=== PATIENT | female | born 1945 | race Caucasian/White ===

== ENCOUNTER 2017-05-10 16:18 | Emergency (ER) | payer BC, MEDICARE, MEDICAID ==
[2017-05-10 16:53] VITALS: BP 117/56
--- NOTE | 2017-05-10 17:36 | UC ---
Miracle Brenner Emily, scribed for Diana Araujo MD on 05/10/17 at 1711 . Abdominal Pain Female HPI - HPI Summary HPI Summary: This patient is a 71 year old F presenting to urgent care accompanied by her daughter with a chief complaint of RLQ and LLQ abd pain radiating upwards that began last night. The pain started while patient was sleeping. The CC is described as a constant pressure with shooting pain. 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 Pt with temp 100 prior to APAP Symptoms alleviated by acetaminophen. Patient reports flatus and black stool (pt attributes this to her iron. Pt did have 3- 4 BM today - the last was "loose" but not pranay diarrhea. Pt reports decreased appetite with little interest in po today. no fevers, chills. + fatigue. Patient denies vomiting, diarrhea, dysuria, polyuria, and vaginal discharge/ itching/odor. Pt denies recent trauma. Pt does have fibroids on her uterus and diverticulosis. No h/o abd surgery or diverticulitis. Patients medications reviewed this visit. - History of Current Complaint Chief Complaint: UCAbdominalPain Stated Complaint: ABDOMINAL PAIN Time Seen by Provider: 05/10/17 16:59 Hx Obtained From: Patient, Family/Registered Pharmacist Onset/Duration: Sudden Onset, Lasting Hours, Still Present Timing: Constant Severity Initially: Severe Severity Currently: Severe Pain Intensity: 1 - 8 at worst Pain Scale Used: 0-10 Numeric Location: Other - LLQ and RLQ Radiates to: Other - epigastric Character: Other - Shooting Alleviating Factor(s): Other: - Acetaminophen Associated Signs and Symptoms: Negative: Fever, Cough, Chest Pain, Back Pain, Blood in Stool, Urinary Symptoms Allergies/Adverse Reactions: Allergies Allergy/AdvReac Type Severity Reaction Status Date / Time Iodine Allergy Intermediate Hives Verified 02/07/15 07:26 Penicillin V AdvReac Intermediate Dizziness Verified 02/07/15 07:26 Home Medications: Home Medications Hydrocortisone SUPP* [Anusol HC Supp*] 25 mg NC 05/10/17 [History] PMH/Surg Hx/FS Hx/Imm Hx Previously Healthy: No Psychological History: Other Other Psychological History: Positive sleep apnea and allergies - Surgical History Surgical History: Yes Surgery Procedure, Year, and Place: D&CLeft Breast Biopsy - Family History Known Family History: Positive: Diabetes - Social History Occupation: Retired Lives: With Family Alcohol Use: None Substance Use Type: None Smoking Status (MU): Never Smoked Tobacco - Immunization History Most Recent Tetanus Shot: ? 2003 Review of Systems Constitutional: Fatigue, Other - decread appetite Gastrointestinal: Abdominal Pain, Other - Positive flatus and black stool. Negative vomiting, diarrhea Genitourinary: Other - Negative dysuria, polyuria, and vaginal discharge/itching /odor All Other Systems Reviewed And Are Negative: Yes Physical Exam Triage Information Reviewed: Yes Appearance: Well-Appearing, No Pain Distress, Well-Nourished Vital Signs: Initial Vital Signs Temp 99.6 F 05/10/17 16:48 Pulse 85 05/10/17 16:48 Resp 18 05/10/17 16:48 BP 117/56 05/10/17 16:48 Pulse Ox 97 05/10/17 16:48 Vital Signs Reviewed: Yes Eyes: Negative: Discharge ENT Exam: Normal ENT: Positive: Hearing grossly normal Respiratory: Positive: Chest non-tender, Lungs clear, Normal breath sounds, No respiratory distress, No accessory muscle use Cardiovascular: Positive: RRR, No Murmur, Pulses Normal Abdominal Exam: Normal Abdomen Description: Positive: No Organomegaly, Soft, Other: - Pt with TTP b/l LQ R>L + suprapubic discomfort with palp soft + BS No distended, no guarding. Negative: CVA Tenderness (R), CVA Tenderness (L), Distended Musculoskeletal Exam: Normal Neurological Exam: Normal Neurological: Positive: Alert Psychological Exam: Normal Skin Exam: Normal Re-Evaluation - Re-Evaluation Second Eval Comment: pt's urine non diagnostic for UTI. pt with microscopic hematuria -pt has prevliously had. Pt will go to ED for additional evaluation Abd Pain Female Course/Dx - Course Course Of Treatment: Pt presents with lower ab pain since last evening. Pain in lower quadrants and improves with APAP. Pt with decreased appetite today. Pt with tenderness across lower abd on exam today. I had a long discussion with pt regarding differential including appendicitis, colitis, diverticulitis. given the location of pain. Will check urine. If neg, recommend pt to ED for further evaluation - Differential Dx/Diagnosis Provider Diagnoses: abdominal pain Discharge - Discharge Plan Condition: Stable Disposition: [facility]ANS [facility] Patient Education Materials: Acute Abdominal Pain (ED) Referrals: Claudia Scott MD [Primary Care Provider] - Additional Instructions: The doctor that evaluated you today thinks your abdominal pain needs further evaluation that can be conducted here. It is recommended you go directly to the emergency department. Your evaluation will likely include laboratory studies and radiology imaging. Please do not eat or drink anything before your evaluation at the emergency department. They are expecting you The documentation as recorded by the Miracle lam Emily accurately reflects the service I personally performed and the decisions made by me, Diana Araujo MD.
== END 2017-05-10 18:00 | disposition short-term general hospital (02) ==
LOC: UCEAST 16:18
DX: R10.9 Unspecified abdominal pain (principal); Z88.0 Allergy status to penicillin; G47.33 Obstructive sleep apnea (adult) (pediatric)
CPT/HCPCS: 81003; 99211; G0463

== ENCOUNTER 2017-05-10 18:22 | Emergency (ER) | payer BC, MEDICARE, MEDICAID ==
[2017-05-10] MEDS ORDERED: NS 0.9% 1000 ML* 1,000 ML IV ONE (18:51)
--- NOTE | 2017-05-10 19:23 | RAD ---
Indication: Abdominal pain. Single frontal view of the chest performed at 1905 hours was reviewed. Comparison is made with previous exam dated September 09, 2011. No mediastinal shift is noted. Heart is of normal size and configuration. Lung zaman appear clear. IMPRESSION: NO ACTIVE CARDIOPULMONARY DISEASE IS NOTED.
[2017-05-10 19:54] LABS: Hematocrit 42 % (35-47); Hemoglobin 14.2 g/dl (12.0-16.0); Mean Corpuscular HGB Conc 34 g/dl (31-36); Mean Corpuscular Hemoglobin 29 pg (27-31); Mean Corpuscular Volume 87 fL (80-97); Mean Platelet Volume 7 um3 (7.4-10.4); Red Blood Count 4.84 10^6/ul (4.0-5.4); Red Cell Distribution Width 13 % (10.5-15); White Blood Count 11.7 10^3/ul (3.5-10.8)
[2017-05-10 20:08] LABS: Albumin 4.1 g/dL (3.2-5.2); BUN/Creatinine Ratio 14.3 (8-20); Calcium 9.4 mg/dL (8.6-10.3); EGFR African American 106.4 (>60); EGFR Non-African American 82.7 (>60); Globulin 3.1 g/dL (2-4); Potassium 3.8 mmol/L (3.5-5.0); Total Bilirubin 0.7 mg/dL (0.2-1.0); Total Protein 7.2 g/dL (6.4-8.9)
[2017-05-10 20:18] LABS: Urine Bacteria 1+ (Absent); Urine Bilirubin Negative (Negative); Urine Glucose Negative (Negative); Urine Nitrite Negative (Negative)
--- NOTE | 2017-05-10 21:49 | RAD ---
Indication: Pelvic pain, abdominal pain. CT of the abdomen and pelvis was performed after oral contrast administration. No IV contrast was given. Coronal and sagittal reconstructed images were obtained. Lung bases demonstrate no pleural fluid, nodules or masses. Heart is of normal size without evidence of pericardial effusion. Liver is normal in size. No focal lesions or intrahepatic ductal dilatation is noted. The common duct is not dilated. The gallbladder demonstrates no calcified gallstones, pericholecystic fluid or wall thickening. The spleen is normal in size. Pancreas demonstrates no mass or pancreatic ductal dilatation. No adrenal masses are noted. The kidneys demonstrate no hydronephrosis although fullness of the renal collecting systems noted bilaterally. Atherosclerotic aorta is noted. No dilated loops of bowel are noted. No retroperitoneal adenopathy is noted. Inferior vena cava is grossly unremarkable. There is contrast in the right colon. Appendix is visualized and is normal. There is wall thickening of the sigmoid colon with infiltration of fat consistent with diverticulitis. No evidence of peridiverticular abscess is noted. The uterus demonstrates myomatous changes with calcification and multiple soft tissue lobulations. No adnexal masses are noted. The urinary bladder is unremarkable. No hernias are noted. IMPRESSION: Findings consistent with diverticulitis. No evidence of peridiverticular abscess is noted. Myomatous changes of the uterus is noted.
[2017-05-10] MEDS ORDERED: Levofloxacin 750 MG IVPREMIX(* 750 MG/150 ML BAG IVPB ONE (22:35)
[2017-05-10] MEDS ORDERED: metroNIDAZOLE IV 500 MG/100ML* 500 MG/100 ML BAG IVPB ONE (22:36)
--- NOTE | 2017-05-10 23:50 | ED ---
David Brenner Angela, scribed for Jas Siddiqui on 05/10/17 at 1903 . Abdominal Pain/Female - HPI Summary HPI Summary: This patient is a 71 year old F presenting from [facility] to [facility] accompanied by female with a chief complaint of constant RLQ abd pain since last night at approximately 1900. The pain radiated to the upper abdomen. The patient rates the sharp pain 8/10 in severity. Symptoms aggravated by palpitation. 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 Patient reports nausea and decreased appetite. Patient denies vomiting, and fever. She denies PSHx. She take ASA daily. - History of Current Complaint Chief Complaint: EDAbdPain Stated Complaint: POSS APPENDICITIS/SENT FROM CC Time Seen by Provider: 05/10/17 18:37 Hx Obtained From: Patient Onset/Duration: Lasting Days - 1 Timing: Days - 1 Pain Intensity: 8 Pain Scale Used: 0-10 Numeric Location: Discrete At: RLQ Allergies/Adverse Reactions: Allergies Allergy/AdvReac Type Severity Reaction Status Date / Time Iodine Allergy Intermediate Hives Verified 05/10/17 18:35 Penicillin V AdvReac Intermediate Dizziness Verified 05/10/17 18:35 PMH/Surg Hx/FS Hx/Imm Hx Endocrine/Hematology History: Reports: Hx Thyroid Disease Denies: Hx Anticoagulant Therapy, Hx Diabetes Cardiovascular History: Reports: Hx Hypercholesterolemia Denies: Hx Hypertension, Hx Pacemaker/ICD Respiratory History: Reports: Hx Asthma, Hx Sleep Apnea Denies: Hx Chronic Obstructive Pulmonary Disease (COPD) GI History: Reports: Hx Gastroesophageal Reflux Disease History: Denies: Hx Renal Disease Sensory History: Denies: Hx Hearing Aid Neurological History: Reports: Hx Migraine Denies: Hx Dementia, Hx Seizures Psychiatric History: Denies: Hx Panic Disorder, Hx Substance Abuse - Surgical History Surgery Procedure, Year, and Place: D&CLeft Breast Biopsy - Immunization History Date of Tetanus Vaccine: ukn Infectious Disease History: No Infectious Disease History: Reports: Hx Shingles Denies: Hx Clostridium Difficile, Hx Hepatitis, Hx Human Immunodeficiency Virus (HIV), Hx of Known/Suspected MRSA, Hx Tuberculosis, Hx Known/Suspected VRSA, History Other Infectious Disease, Traveled Outside the [place] in Last 30 Days - Family History Known Family History: Positive: Diabetes - Social History Alcohol Use: None Substance Use Type: Reports: None Smoking Status (MU): Never Smoked Tobacco Review of Systems Positive: Other - decreased appetite. Negative: Fever, Chills Eyes: Negative Positive: Abdominal Pain, Nausea. Negative: Vomiting, Diarrhea Genitourinary: Negative Neurological: Negative All Other Systems Reviewed And Are Negative: Yes Physical Exam Triage Information Reviewed: Yes Vital Signs On Initial Exam: Initial Vitals Temp Pulse Resp BP Pulse Ox 98.2 F 79 16 149/96 98 05/10/17 18:31 05/10/17 18:31 05/10/17 18:31 05/10/17 18:31 05/10/17 18:31 Vital Signs Reviewed: Yes Appearance: Positive: Well-Appearing Skin: Positive: Warm, Skin Color Reflects Adequate Perfusion, Dry Head/Face: Positive: Normal Head/Face Inspection Eyes: Positive: EOMI, KEERTHI ENT: Positive: Normal ENT inspection Neck: Positive: Supple, Nontender Respiratory/Lung Sounds: Positive: Clear to Auscultation, Breath Sounds Present Cardiovascular: Positive: RRR, Pulses are Symmetrical in both Upper and Lower Extremities Abdomen Description: Positive: Soft, Other: - diffuse abd tenderness Bowel Sounds: Positive: Present Musculoskeletal: Positive: Normal, Strength/ROM Intact Neurological: Positive: Normal, Sensory/Motor Intact, Alert, Oriented to Person Place, Time Diagnostics - Vital Signs Vital Signs Temp Pulse Resp BP Pulse Ox 05/10/17 18:31 98.2 F 79 16 149/96 98 - Laboratory Result Diagrams: 05/10/17 19:43 05/10/17 19:43 Lab Statement: Any lab studies that have been ordered have been reviewed, and results considered in the medical decision making process. - Radiology Chest XR Xray Interpretation: No Acute Changes - IMPRESSION: No active cardiopulmonary disease is noted. ED physician has reviewed this radiology report and agrees. Radiology Interpretation Completed By: Radiologist - CT Abdomen/pelvis CT CT Interpretation: Positive (See Comments) - IMPRESSION: Findings consistent with diverticulitis. No evidence of peridiverticular abscess is noted. Myomatous changes of the uterus is noted. ED physician has reviewed this radiology report and agrees. CT Interpretation Completed By: Radiologist - EKG 1854 Cardiac Rate: NL - 68 bpm EKG Rhythm: Sinus Rhythm EKG Interpretation: No ST changes Abdominal Pain Fem Course/Dx - Course Course Of Treatment: Pt is a 71 year old F presenting from [facility] to [facility] with a chief complaint of constant RLQ abd pain since last night at approximately 1900. Bloodwork, EKG, chest XR, abdomen/pelvis CT. CT is consistent with diverticulitis. Pt will be discharged and will follow up with PCP in 3 days. - Diagnoses Provider Diagnoses: Diverticulitis Discharge - Discharge Plan Condition: Stable Disposition: HOME Patient Education Materials: Diverticulitis (ED) Referrals: Claudia Scott MD [Primary Care Provider] - 3 Days The documentation as recorded by the David lam Angela accurately reflects the service I personally performed and the decisions made by Chen wong Emmanuel.
[2017-05-11] MEDS ORDERED: Acetaminophen TAB* 325 MG PO ONE (01:21)
[2017-05-11 02:55] VITALS: BP 141/84
== END 2017-05-11 02:55 | disposition home or self-care (01) ==
LOC: ED 18:22
DX: K57.92 Diverticulitis of intestine, part unspecified, without perforation or abscess without bleeding (principal); R10.9 Unspecified abdominal pain; R11.0 Nausea
CPT/HCPCS: 36415; 71010; 74176; 80053; 81003; 81015; 83605; 83690; 84484; 85025; 85610; 85730; 87086; 93005; 96365; 99282; A9270-GY

== ENCOUNTER 2017-09-30 05:25 | Inpatient (IN) | payer BC, MEDICARE, MEDICAID ==
[2017-09-30] MEDS ORDERED: Pantoprazole IV* 40 MG IV ONE (05:59)
[2017-09-30] MEDS ORDERED: Ondansetron INJ* 2 MG/ML VIAL IV ONE (05:59)
[2017-09-30] MEDS ORDERED: Promethazine INJ(RESTRICTED)* 25 MG/ML 1 ML VIAL IM ONE (06:01)
[2017-09-30] MEDS: NS 0.9% 1000 ML* 2,000 ML IV ONE ×2 (06:07→07:56)
[2017-09-30] MEDS ORDERED: Meclizine TAB* 12.5 MG PO ONE (06:15)
[2017-09-30 06:20] LABS: ABS Basophils 0 10^3/ul (0-0.2); ABS Eosinophils 0 10^3/ul (0-0.6); ABS Lymphocytes 2.6 10^3/ul (1.0-4.8); ABS Monocytes 0.9 10^3/ul (0-0.8); ABS Nucleated RBC 0 10^3/ul; Eosinophil % 0.1 % (0-6); Hematocrit 41 % (35-47); Hemoglobin 13.7 g/dl (12.0-16.0); Lymphocyte % 24.9 % (25-47); Mean Corpuscular HGB Conc 34 g/dl (31-36); Mean Corpuscular Hemoglobin 29 pg (27-31); Mean Corpuscular Volume 88 fL (80-97); Mean Platelet Volume 7 um3 (7.4-10.4); Nucleated Red Blood Cells % 0.1; Platelet Count 581 10^3/ul (150-450); Red Blood Count 4.65 10^6/ul (4.0-5.4); Red Cell Distribution Width 13 % (10.5-15); White Blood Count 10.6 10^3/ul (3.5-10.8)
[2017-09-30 06:27] LABS: INR 0.98 (0.77-1.02)
[2017-09-30 06:32] LABS: EGFR Non-African American 88.3 (>60)
--- NOTE | 2017-09-30 06:59 | ED ---
Jayne Brenner Thomas, scribed for Federico Lowery MD on 09/30/17 at 0614 . Complex/Multi-Sys Presentation - HPI Summary HPI Summary: The patient is a 72 year old female complaining of vomiting and inability to keep anything down for the last day. The patient had a hysterectomy due to fibroids on 08/30/17 and shortly after that surgery, she had a herniated bowel that required surgery. She denies pain in the ED. She has been passing gas. For the last two nights, the patient has been having dizziness when she stands up. The patient denies shortness of breath. She is on ASA 81. - History Of Current Complaint Chief Complaint: EDNauseaVomitDiarrh Time Seen by Provider: 09/30/17 05:38 Hx Obtained From: Patient Onset/Duration: Lasting Days - 1, Still Present Timing: Constant Severity Currently: Moderate Severity Initially: Moderate Location: Negative Alleviating Factor(s): None Associated Signs And Symptoms: Positive: Other - Vomiting, dizziness; NEGATIVE: abd pain, SOB Related History: Recent Hospitalization, Other - Recent surgery - Allergies/Home Medications Allergies/Adverse Reactions: Allergies Allergy/AdvReac Type Severity Reaction Status Date / Time iodine Allergy Hives Verified 09/30/17 05:31 Penicillins Allergy Dizziness Verified 09/30/17 05:31 PMH/Surg Hx/FS Hx/Imm Hx Endocrine/Hematology History: Reports: Hx Thyroid Disease Denies: Hx Anticoagulant Therapy, Hx Diabetes Cardiovascular History: Reports: Hx Hypercholesterolemia Denies: Hx Hypertension, Hx Pacemaker/ICD Respiratory History: Reports: Hx Asthma, Hx Sleep Apnea Denies: Hx Chronic Obstructive Pulmonary Disease (COPD) GI History: Reports: Hx Gastroesophageal Reflux Disease History: Denies: Hx Renal Disease Sensory History: Denies: Hx Hearing Aid Neurological History: Reports: Hx Migraine Denies: Hx Dementia, Hx Seizures Psychiatric History: Denies: Hx Panic Disorder, Hx Substance Abuse - Surgical History Surgery Procedure, Year, and Place: D&CLeft Breast Biopsy - Immunization History Date of Tetanus Vaccine: ukn Infectious Disease History: No Infectious Disease History: Reports: Hx Shingles Denies: Hx Clostridium Difficile, Hx Hepatitis, Hx Human Immunodeficiency Virus (HIV), Hx of Known/Suspected MRSA, Hx Tuberculosis, Hx Known/Suspected VRSA, History Other Infectious Disease, Traveled Outside the [place] in Last 30 Days - Family History Known Family History: Positive: Diabetes - Social History Alcohol Use: None Substance Use Type: Reports: None Smoking Status (MU): Never Smoked Tobacco Review of Systems Negative: Shortness Of Breath Positive: Vomiting. Negative: Abdominal Pain Neurological: Other - Dizziness All Other Systems Reviewed And Are Negative: Yes Physical Exam - Summary Physical Exam Summary: VITAL SIGNS: Reviewed. GENERAL: Patient is a well-developed and nourished MALE who is lying comfortable in the stretcher. Patient is not in any acute respiratory distress. HEAD AND FACE: No signs of trauma. No ecchymosis, hematomas or skull depressions. No sinus tenderness. EYES: PERRLA, EOMI x 2, No injected conjunctiva, no nystagmus. No dysmetria. EARS: Hearing grossly intact. Ear canals and tympanic membranes are within normal limits. MOUTH: Oropharynx within normal limits. NECK: Supple, trachea is midline, no adenopathy, no JVD, no carotid bruit, no c- spine tenderness, neck with full ROM. CHEST: Symmetric, no tenderness at palpation LUNGS: Clear to auscultation bilaterally. No wheezing or crackles. CVS: Regular rate and rhythm, S1 and S2 present, no murmurs or gallops appreciated. ABDOMEN: There is ecchymosis over the anterior abdominal wall. Soft, non- tender. No signs of distention. No rebound no guarding, and no masses palpated. Bowel sounds are hypoactive. EXTREMITIES: FROM in all major joints, no edema, no cyanosis or clubbing. NEURO: Alert and oriented x 3. No acute neurological deficits. Speech is normal and follows commands. No dysmetria. SKIN: Dry and warm Triage Information Reviewed: Yes Vital Signs On Initial Exam: Initial Vitals Temp Pulse Resp BP Pulse Ox 98.2 F 82 16 163/62 98 09/30/17 05:27 09/30/17 05:27 09/30/17 05:27 09/30/17 05:27 09/30/17 05:27 Vital Signs Reviewed: Yes Diagnostics - Vital Signs Vital Signs Temp Pulse Resp BP Pulse Ox 09/30/17 05:27 98.2 F 82 16 163/62 98 - Laboratory Result Diagrams: 09/30/17 05:42 09/30/17 05:42 Lab Statement: Any lab studies that have been ordered have been reviewed, and results considered in the medical decision making process. Complex Multi-Symp Course/Dx Assessment/Plan: The patient is a 72 year old female complaining of vomiting and inability to keep anything down for the last day. The patient had a hysterectomy due to fibroids on 08/30/17 and shortly after that surgery, she had a herniated bowel that required surgery. She denies pain in the ED. She has been passing gas. For the last two nights, the patient has been having dizziness when she stands up. In the ED course the patient was given IV fluids, Zofran, Protonix, and Promethazine. Bloodwork and urinalysis were obtained. At this time, CT Abd/Pel and CT Merlin are ordered but not yet taken. The patient will be signed out to Dr. Dean, pending imaging and awaiting disposition. - Diagnoses Provider Diagnoses: Dizziness, Vomiting Discharge - Discharge Plan Condition: Fair Disposition: OTHER Discharge Disposition Comment: Signed out to Dr. Dean, pending imaging and awaiting disposition. Referrals: Claudia Scott MD [Primary Care Provider] - The documentation as recorded by the Jayne lam Thomas accurately reflects the service I personally performed and the decisions made by , Federico Lowery MD.
[2017-09-30 08:02] LABS: Urine Appearance Clear; Urine Blood 1+ (Negative); Urine Color Yellow; Urine Ketones Trace (Negative); Urine Protein Negative (Negative); Urine Specific Gravity 1.012 (1.010-1.030); Urine Urobilinogen Negative (Negative)
--- NOTE | 2017-09-30 08:05 | RAD ---
HISTORY: Vertigo COMPARISONS: Head CT dated August 31, 2011, MRI dated November 06, 2014 TECHNIQUE: Multiple contiguous axial CT scans were obtained of the head without intravenous contrast. FINDINGS: HEMORRHAGE/INFARCT: There is no hemorrhage or acute infarct. MASSES/SHIFT: There is no mass or shift. EXTRA-AXIAL SPACES: There are no extra-axial fluid collections. SULCI AND VENTRICLES: The sulci and ventricles are normal in size and position for the patient's stated age. CEREBRUM: There are no focal parenchymal abnormalities. BRAINSTEM: There are no focal parenchymal abnormalities. CEREBELLUM: There are no focal parenchymal abnormalities. VESSELS: The vessels are grossly normal. PARANASAL SINUSES: The paranasal sinuses are clear. ORBITS: The orbits are unremarkable. BONES AND SOFT TISSUE: No bone or soft tissue abnormalities are noted. OTHER: None IMPRESSION: NO ACUTE INTRACRANIAL PATHOLOGY.
--- NOTE | 2017-09-30 08:11 | RAD ---
CLINICAL HISTORY: Vomiting COMPARISON: May 10, 2017 TECHNIQUE: Multiple contiguous axial CT scans were obtained of the abdomen and pelvis, without intravenous contrast enhancement. Coronal and sagittal multiplanar reformations are submitted for review. Oral contrast was not administered. FINDINGS: The study is limited by the lack of intravenous contrast. This limits evaluation of the solid organs and vasculature. LUNG BASES: The lung bases are clear. LIVER: The liver is normal in shape, size, contour, and attenuation. BILE DUCTS: There is no intrahepatic or extrahepatic biliary dilatation. GALLBLADDER: The gallbladder is normal, without pericholecystic inflammatory change. PANCREAS: The pancreas is normal, without mass or ductal dilatation. SPLEEN: Normal in size and appearance. UPPER GI TRACT: Evaluation of the gastrointestinal tract is limited by incomplete gastric distention. There is a small sliding hiatal hernia. SMALL BOWEL AND MESENTERY: There is distention without dilatation of loops of small bowel within the midabdomen, without clear transition point COLON: There are multiple diverticula of the sigmoid colon. There is no pericolonic inflammatory change. There is a tubular, vermiform, hollow viscus that is blind ending, and originates from the cecum, consistent with a normal appendix. There is no periappendiceal inflammatory change. This is best seen on axial images 57 through 65 ADRENALS: Normal bilaterally. KIDNEYS: The kidneys are normal in shape, size, contour, and axis. There is no hydronephrosis or nephrolithiasis. BLADDER: The bladder is collapsed and is not well evaluated. PELVIC ORGANS: The pelvic organs are not visualized. There is a small amount of free fluid within the pelvis. AORTA: There is calcific atherosclerotic disease of the abdominal aorta and its branches, without aneurysmal dilatation IVC: Unremarkable LYMPH NODES: There is no lymphadenopathy by size criteria. ABDOMINAL WALL: There is no evidence for abdominal wall hernia. There is post surgical change to the anterior abdominal wall. BONES AND SOFT TISSUES: Degenerative changes are noted of the spine. OTHER: None IMPRESSION: 1. THERE IS DISTENTION WITHOUT DILATATION OF SMALL BOWEL LOOPS IN THE UPPER ABDOMEN WITHOUT TRANSITION POINT. THIS IS NONSPECIFIC. THE DIFFERENTIAL INCLUDES ILEUS VERSUS EARLY OR PARTIAL OBSTRUCTION. RECOMMEND ATTENTION ON FOLLOW-UP IMAGING. 2. DIVERTICULOSIS. 3. ATHEROSCLEROSIS. 4. THERE IS A SMALL AMOUNT OF FREE FLUID WITHIN THE PELVIS.
[2017-09-30] MEDS ORDERED: Metoclopramide IV* 5 MG/ML 2 ML VIAL IV ONE (08:43)
[2017-09-30] MEDS ORDERED: LORazepam INJ* 2 MG/ML 1 ML VIAL IV PUSH ONE (08:43)
[2017-09-30] MEDS ORDERED: Albuterol HFA INHALER* 8 gm MDI INH PRN (10:35)
[2017-09-30] MEDS: NS 0.9% 1000 ML* 1,000 ML IV SCH (12:16)
[2017-09-30] MEDS: Ketorolac INJ* 30 MG/ML 1 ML VIAL IV PUSH PRN ×2 (12:16→19:39)
[2017-09-30] MEDS: Ondansetron INJ* 2 MG/ML VIAL IV PRN ×2 (12:16→19:40)
[2017-09-30] MEDS: Heparin VIAL(*) 5000 UNITS/ML VIAL (FIVE THOUSAND) SUBCUT SCH ×2 (14:05→21:44)
[2017-09-30] MEDS: Atorvastatin* 20 MG TAB PO SCH (16:16)
[2017-09-30] MEDS: Montelukast Sodium TAB* 10 MG PO SCH (16:16)
[2017-09-30] MEDS: Aspirin EC Low Dose* 81 MG TAB.EC PO SCH (16:16)
--- NOTE | 2017-09-30 18:20 | PN ---
Progress Note - Progress Note Date of Service: 09/30/17 Note: Brief Surgery Note (full consult dictated) S: hx reviewed; admitted w/ vomiting and vertigo; denies sig abd pain; has been moving bowels and passing flatus O: Vital Signs - 8 hr 09/30/17 09/30/17 09/30/17 11:00 11:15 11:16 Temperature 98.8 F Pulse Rate 78 Respiratory Rate Blood Pressure 149/61 (mmHg) O2 Sat by Pulse 96 Oximetry 09/30/17 09/30/17 09/30/17 12:00 12:14 12:32 Temperature 98.2 F 98.8 F Pulse Rate 85 Respiratory 16 16 Rate Blood Pressure 157/61 (mmHg) O2 Sat by Pulse 97 Oximetry 09/30/17 15:12 Temperature 98.4 F Pulse Rate 73 Respiratory 20 Rate Blood Pressure 135/55 (mmHg) O2 Sat by Pulse 95 Oximetry Gen: WN, WD, in NAD HEENT: mm dry Heart: reg Lungs: clear Abd: healing laparoscopic incision sites (multiple); couple of areas of resolving ecchymosis; +BS (normoactive); soft; nontender to palp; no masses. Extr: no edema Labs: Laboratory Tests 09/30/17 09/30/17 09/30/17 05:42 05:42 05:42 WBC 10.6 Hgb 13.7 Neut % (Auto) 66.3 Potassium 3.1 L Lactic Acid 2.1 H* ALT 58 H Alkaline Phosphatase 105 H C-Reactive Protein 10.56 H Amylase [address]: (noncontrast) (reviewed personally w/ Dr. Quezada) COMPARISON: May 10, 2017 TECHNIQUE: Multiple contiguous axial CT scans were obtained of the abdomen and pelvis, without intravenous contrast enhancement. Coronal and sagittal multiplanar reformations are submitted for review. Oral contrast was not administered. FINDINGS: The study is limited by the lack of intravenous contrast. This limits evaluation of the solid organs and vasculature. LUNG BASES: The lung bases are clear. LIVER: The liver is normal in shape, size, contour, and attenuation. BILE DUCTS: There is no intrahepatic or extrahepatic biliary dilatation. GALLBLADDER: The gallbladder is normal, without pericholecystic inflammatory change. PANCREAS: The pancreas is normal, without mass or ductal dilatation. SPLEEN: Normal in size and appearance. UPPER GI TRACT: Evaluation of the gastrointestinal tract is limited by incomplete gastric distention. There is a small sliding hiatal hernia. SMALL BOWEL AND MESENTERY: There is distention without dilatation of loops of small bowel within the midabdomen, without clear transition point COLON: There are multiple diverticula of the sigmoid colon. There is no pericolonic inflammatory change. There is a tubular, vermiform, hollow viscus that is blind ending, and originates from the cecum, consistent with a normal appendix. There is no periappendiceal inflammatory change. This is best seen on axial images 57 through 65 ADRENALS: Normal bilaterally. KIDNEYS: The kidneys are normal in shape, size, contour, and axis. There is no hydronephrosis or nephrolithiasis. BLADDER: The bladder is collapsed and is not well evaluated. PELVIC ORGANS: The pelvic organs are not visualized. There is a small amount of free fluid within the pelvis. AORTA: There is calcific atherosclerotic disease of the abdominal aorta and its branches, without aneurysmal dilatation IVC: Unremarkable LYMPH NODES: There is no lymphadenopathy by size criteria. ABDOMINAL WALL: There is no evidence for abdominal wall hernia. There is post surgical change to the anterior abdominal wall. BONES AND SOFT TISSUES: Degenerative changes are noted of the spine. OTHER: None IMPRESSION: 1. THERE IS DISTENTION WITHOUT DILATATION OF SMALL BOWEL LOOPS IN THE UPPER ABDOMEN WITHOUT TRANSITION POINT. THIS IS NONSPECIFIC. THE DIFFERENTIAL INCLUDES ILEUS VERSUS EARLY OR PARTIAL OBSTRUCTION. RECOMMEND ATTENTION ON FOLLOW-UP IMAGING. 2. DIVERTICULOSIS. 3. ATHEROSCLEROSIS. 4. THERE IS A SMALL AMOUNT OF FREE FLUID WITHIN THE PELVIS. A: vomiting and vertigo, now ~ 2 wks s/p lap robotic vag hysterectomy and 11 days s/p repair umbilical and lap port site hernias w/ mesh. There do not appear to be any active surgical issues, but P: we will follow while in-house; I will d/w Dr. Quezada, surgical attending. Will also order K repletion.
--- NOTE | 2017-09-30 18:36 | ED ---
David Brenner Angela, scribed for Dion Dean MD on 09/30/17 at 0716 . Progress - Progress Note Progress Note: This pt was signed out by Dr. Lowery, pending disposition, awaiting CT Brain and CT abdomen/pelvis. CT Brain, as read by radiologist: IMPRESSION: No acute intracranial pathology. Dr. Dean has reviewed this radiology report. CT Abdomen/Pelvis, as read by radiologist: IMPRESSION: 1. There is distension without dilatation of small bowel loops in the upper abdomen without transition point. This is nonspecific. The differential includes ileus versus early or partial obstruction. Recommend attention on follow-up imaging. 2. Diverticulosis. 3. Atherosclerosis. 4. There is a small amount of free fluid within the pelvis. Dr. Dean has reviewed this radiology report. This pt was signed out to me by Dr. Lowery to follow up on the CT of abdomen/ pelvis and brain CT. Brain CT: No acute intracranial pathology. Abdomen/Pelvis CT: 1. There is distension without dilatation of small bowel loops in the upper abdomen without transition point. This is nonspecific. The differential includes ileus versus early or partial obstruction. Recommend attention on follow-up imaging. 2. Diverticulosis. 3. Atherosclerosis. 4. There is a small amount of free fluid within the pelvis. Pt seems to have a partial small bowel obstruction. I discussed the pt's case with Dr. Rodriguez, hospitalist, who has agreed to admit the pt. Pt will be admitted to [facility], in stable condition, with a diagnosis of partial small bowel obstruction. Condition: Stable Disposition: Admit to [facility] Course/Dx - Diagnoses Provider Diagnoses: Small bowel obstruction - Provider Notifications Discussed Care Of Patient With: Clayton Rodriguez Time Discussed With Above Provider: 08:50 Instructed by Provider To: Other - I discussed pt care with Dr. Rodriguez, hospitalist, who agreed to accept the pt. The documentation as recorded by the David lam Angela accurately reflects the service I personally performed and the decisions made by me, Dion Dena MD.
--- NOTE | 2017-09-30 19:33 | HP ---
ADMISSION HISTORY AND PHYSICAL: DATE OF ADMISSION: 09/30/17 PRIMARY CARE PROVIDER: Dr. Scott. HEALTHCARE PROXY: Her daughter. CODE STATUS: Full. SOURCE OF INFORMATION: History was obtained from interview with the patient and her daughter. RELIABILITY: Good. CHIEF COMPLAINT: Nausea and vomiting. HISTORY OF PRESENT ILLNESS: This 72-year-old female, recent laparoscopic hysterectomy at [facility] on 09/16/17, performed secondary to emerging fibroids, had done well; however, status post surgery, was discharged, developed nausea, vomiting, was found to have umbilical herniation of bowel per patient, on 09/19/17, required repair with mesh. She was hospitalized at [facility] from the through the , treated with NG tube, after repair discharged and had been doing well since the ; however, 2 days prior to presentation, ate Turkmen food with her daughter and they both had felt nauseous overnight which developed into vomiting yesterday for the patient, but did not for the patient's daughter. The vomiting increased, became bilious for which the patient presented to the emergency room. She has had no abdominal pain. Her last bowel movement was yesterday with diarrhea and then became more solid. She noted decreased quantity of flatus. Her last emesis was in the emergency room this morning. No longer feels nauseous at this point. She does note 1 episode of sudden onset vertigo which has since resolved. When seen by this author, she is no longer nauseous, has no abdominal pain, but does note headache. PAST MEDICAL HISTORY: Includes: 1. Hypothyroidism. 2. Allergies. 3. Sleep apnea for which she uses CPAP. 4. Migraines. 5. Left breast biopsy. 6. Laparoscopic hysterectomy at [facility] at 09/16/17. ALLERGIES: To PENICILLIN and IODINE. FAMILY HISTORY: Parents lived to old age. No known medical illnesses. SOCIAL HISTORY: No tobacco, alcohol or illicits. REVIEW OF SYSTEMS: As per HPI, otherwise all other systems negative. PHYSICAL EXAMINATION GENERAL: Younger than stated age, interactive, pleasant, in no apparent distress. VITAL SIGNS: Vitals in the emergency room 142/65, heart rate 85, respiratory rate 16, 97% on room air, T-max 98.2. HEENT: Oropharynx is clear. Moist mucous membranes. Sclerae are anicteric. LUNGS: Clear to auscultation. HEART: Has a regular rate and rhythm. ABDOMEN: Soft, has positive bowel sounds. Does have area of firmness around the umbilicus that is nontender. EXTREMITIES: Warm and well perfused without clubbing, cyanosis or edema. She has 2+ peripheral pulses. Less than 2 second cap refill. NEUROLOGIC: She is alert and oriented x3. Cranial nerves II through XII are intact. She has no apparent anxiety, agitation or depression. LABORATORY DATA/DIAGNOSTIC STUDIES: Labs in the emergency room; white blood cell count 10.6, hemoglobin 13.7, platelets 581,000. INR 0.98. Sodium 137, potassium 3.1, chloride 101, BUN 12, creatinine 0.66, ALT 58, alk phos 108. Data reviewed. CT abdomen and pelvis. Impression: There is distention without dilatation of small bowel loops in the upper abdomen without transition point. It is nonspecific. The differential includes ileus versus earlier partial small bowel obstruction. ASSESSMENT AND PLAN: This is a 72-year-old female, recent laparoscopic hysterectomy complicated by what seemingly sounds like abdominal hernia status post laparoscopic repair 09/19/17, now returning with nausea and vomiting that has since resolved with a CT evidence of potential early small bowel obstruction. Nausea and vomiting, concern for early small bowel obstruction versus ileus, especially in the setting of recent nausea in her daughter. This may be a gastroenteritis that was more difficult for the patient to resolve from after her surgery. We will maintain the patient n.p.o., 75 cc of fluid while n.p.o. Zofran for nausea. Does not need NG tube at this time, given resolution of nausea and vomiting. Discussed need for NG tube if she should continue to vomit. I will consult Surgery in this case given her recent surgical history. Headache: Toradol for headache at this time. History of sleep apnea: CPAP. Hypothyroidism: Continue Synthroid as ordered oral at this point. If the patient is unable to tolerate oral medications by the morning, this will need conversion to IV. DVT prophylaxis: Heparin subcu. [id number]/[facility] #: [id number] [facility]
[2017-09-30] MEDS: KCL 10 MEQ/50 ML IVPREMIX* 10 MEQ/50 ML BAG IV SCH ×2 (19:40→22:00)
--- NOTE | 2017-09-30 23:58 | CONS ---
CC: Dr. Scott at [facility] * SURGICAL CONSULT: DATE OF CONSULT: 09/30/17 ATTENDING SURGEON: Merlin Quezada MD (MARY Hernandez, dictating). CHIEF COMPLAINT: Vomiting and vertigo. HISTORY OF PRESENT ILLNESS: This is a 72-year-old female who underwent laparoscopic-assisted robotic vaginal hysterectomy with bilateral salpingo- oophorectomy for fibroids on 09/16/17 at [facility]. She had been discharged the following day, but returned to the hospital with vomiting and was found to have an apparent port site hernia, as well as a preexisting umbilical hernia. She states that these were repaired together with a mesh on 09/19/17 and that she was discharged around 09/23/17, though she is not absolutely sure of the dates. She stayed in the area for a couple of days and then began to make her way home. She did stop and was evaluated at a hospital in [place] regarding back and upper abdominal pain. The workup was apparently unremarkable and she continued on her way home. She eventually arrived home yesterday morning. Since that time, beginning last night and this morning, she was unable to keep anything down. This was accompanied by vertigo symptoms (she has had 1 episode of vertigo a couple of years ago). She came to the ED and was admitted to the hospitalist service. She states that she has been moving her bowels (in the last 24 hours they have ranged from loose to formed, the last being this morning at home. She states that her stool has been slightly darker than normal, but she specifically denies bright red blood or pranay melena). She states that her last vomiting was also this morning, though she still continues to feel nauseated. She denies specifically any hematemesis. In fact, the vomitus has been bilious. She had been using only Tylenol and Motrin p.r.n. for postoperative pain, the Tylenol 500 mg every 4 hours and Motrin 200 mg every 6 hours. At the present time, she denies any significant abdominal pain. She is n.p.o. She has been passing flatus since admission. PAST MEDICAL HISTORY: 1. TIA x2 (on chronic aspirin therapy). 2. Asthma and allergies. 3. She did have an episode of diverticulitis in June 2017 treated initially as an inpatient and then discharged on oral antibiotics. No recurrences. 4. Obstructive sleep apnea (incompletely treated with use of a mouth piece; she did not tolerate CPAP). PAST SURGICAL HISTORY: Previous surgeries include those noted in the HPI. Also a left breast biopsy for benign disease and D and C in the past. MEDICATIONS ON ADMISSION: Current medications include: 1. Synthroid. 2. Lexapro. 3. Lipitor. 4. Baby aspirin. 5. Singulair. 6. Albuterol p.r.n. 7. Unspecified suppository p.r.n. DRUG ALLERGIES: Include IODINE (hives from IV contrast), PENICILLIN (nausea). SOCIAL HISTORY: She lives with her partner. She denies use of tobacco. She drinks alcohol occasionally, but not daily. REVIEW OF SYSTEMS: No additions to above other than . Specifically, no dysuria or increased frequency. [employer]: No vaginal discharge or bleeding. PHYSICAL EXAM: Vital Signs: Height 5 feet 2 inches, weight 163 pounds. Temperature 98.4, blood pressure 135/55, pulse 73, respirations 20, room air saturation 95%. General: Well-nourished, well-developed female in no acute distress. She appears comfortable. Skin: Warm and dry. No suspicious rashes or lesions. HEENT: Pupils equal, round, and reactive. EOMs intact. No conjunctival pallor. Oropharynx: Teeth in good repair. Mucous membranes slightly dry. Neck: No lymphadenopathy or thyromegaly. Heart: Regular rate and rhythm. No murmur noted. Lungs: Clear to auscultation. No rales or wheezes. Abdomen: No significant distention. There are multiple healing laparoscopic incision sites with no evidence of infection. There are a couple of areas of what appear to be resolving ecchymosis. Bowel sounds are present and normoactive. Abdomen is soft and without significant tenderness. No palpable masses. Vaginal and rectal examinations not done. Back: No spinous process or CVA tenderness. Extremities: No edema. Neurological: Grossly intact. LABORATORY DATA: Of note, white blood cell count 10,600, hemoglobin 13.6. Potassium 3.1, glucose 139, lactic acid 2.1, ALT 58, alkaline phosphatase 105. Remainder of the LFTs are normal. Amylase and lipase are normal. CRP 11. Urinalysis notable for trace ketones and 1+ blood. CT scan, which was a noncontrast study and was reviewed personally with Dr. Quezada, showed mild dilation of small bowel loops without transition point, diverticulosis without evidence of acute diverticulitis. No free air. No significant fluid collections. IMPRESSION: Vomiting with vertigo. There do not appear to be any surgical related complications or reasons for her recurrent symptomatology and specifically no evidence of intraabdominal infection or evidence of obstruction. PLAN: We will follow with you while she is in house. I did order repletion of potassium with repeat check of her electrolytes in the morning. MARY HERNANDEZ [id number]/[facility] #: [id number] ARACELY
[2017-10-01] MEDS: KCL 10 MEQ/50 ML IVPREMIX* 10 MEQ/50 ML BAG IV SCH ×2 (00:08→02:30)
[2017-10-01] MEDS: NS 0.9% 1000 ML* 1,000 ML IV SCH ×2 (00:12→13:43)
[2017-10-01] MEDS: Ketorolac INJ* 30 MG/ML 1 ML VIAL IV PUSH PRN ×2 (01:40→07:54)
[2017-10-01] MEDS: Heparin VIAL(*) 5000 UNITS/ML VIAL (FIVE THOUSAND) SUBCUT SCH ×3 (06:21→21:41)
[2017-10-01] MEDS: Levothyroxine TAB* 88 MCG TAB PO SCH (06:50)
[2017-10-01] MEDS: Citalopram TAB* 20 MG PO SCH (08:53)
[2017-10-01] MEDS ORDERED: Acetaminophen TAB* 325 MG PO PRN (10:08)
--- NOTE | 2017-10-01 11:54 | PN ---
Subjective Date of Service: 10/01/17 Interval History: Seen with daughter at bedside Pt had abdominal pain that resolved with walking Pain is mostly burning around lap access site +flatus but minimal while walking No BM No N/V since admission Objective Active Medications: Acetaminophen (Tylenol Tab*) 650 mg PO Q4H PRN PRN Reason: mild pain Albuterol (Ventolin Hfa Inhaler*) 2 puff INH Q4H PRN PRN Reason: WHEEZING Aspirin (Aspirin Ec Low Dose*) 81 mg PO QPM [facility] Last Admin: 09/30/17 16:16 Dose: Not Given Atorvastatin Calcium (Lipitor*) 20 mg PO QPM [facility] Last Admin: 09/30/17 16:16 Dose: Not Given Citalopram Hydrobromide (Celexa Tab*) 20 mg PO QAM [facility] Last Admin: 10/01/17 08:53 Dose: Not Given Heparin Sodium (Porcine) (Heparin Vial(*)) 5,000 units SUBCUT Q8HR [facility] Last Admin: 10/01/17 06:21 Dose: 5,000 units Sodium Chloride (Ns 0.9% 1000 Ml*) 1,000 mls @ 75 mls/hr IV PER RATE [facility] Last Admin: 10/01/17 00:12 Dose: 75 mls/hr Ketorolac Tromethamine (Toradol Inj*) 30 mg IV PUSH Q6H PRN PRN Reason: PAIN Last Admin: 10/01/17 07:54 Dose: 30 mg Levothyroxine Sodium (Synthroid Tab*) 88 mcg PO 0600 [facility] Last Admin: 10/01/17 06:50 Dose: Not Given Montelukast Sodium (Singulair Tab*) 10 mg PO QPM [facility] Last Admin: 09/30/17 16:16 Dose: Not Given Ondansetron HCl (Zofran Inj*) 4 mg IV Q4H PRN PRN Reason: NAUSEA/VOMITING Last Admin: 09/30/17 19:40 Dose: 4 mg Vital Signs - 8 hr 10/01/17 10/01/17 10/01/17 07:13 07:20 11:24 Temperature 97.8 F 98.0 F Pulse Rate 62 60 Respiratory 18 17 16 Rate Blood Pressure 141/65 133/59 (mmHg) O2 Sat by Pulse 97 97 Oximetry Oxygen Devices in Use Now: None Appearance: lying flat, NAD Eyes: No Scleral Icterus, PERRLA Ears/Nose/Mouth/Throat: Clear Oropharnyx, Mucous Membranes Moist Neck: NL Appearance and Movements; NL JVP, Trachea Midline Respiratory: Symmetrical Chest Expansion and Respiratory Effort, Clear to Auscultation Cardiovascular: NL Sounds; No Murmurs; No JVD, RRR Abdominal: - - soft, hypoactive BS on right, NTTP, ND Extremities: No Edema Skin: No Rash or Ulcers Neurological: Alert and Oriented x 3 Result Diagrams: 09/30/17 05:42 10/01/17 04:36 Assess/Plan/Problems-Billing Assessment: 72 yo F recent vag hysto c/b umbilical and lap port site hernias s/p repair with mesh repair now returning with N/V and e/o ileus vs pSBO - Patient Problems (1) Partial small bowel obstruction Comment: Minimal flatus, no BM, no N/V Monitor. Advance diet with continues flatus or BM appreciate surgical asisstance NS 75cc/hr (2) JESSICA (obstructive sleep apnea) Comment: CPAP (3) Hypothyroid Comment: synthroid (4) DVT prophylaxis Comment: HSQ
--- NOTE | 2017-10-01 13:23 | PN ---
Progress Note - Progress Note Date of Service: 10/01/17 Note: Surgery Progress: S: min incisional pain (used Toradol last pm for headache); no N/V at present; vertigo still seems to come and go, but for the most part is much improved; she' s been passing flatus O: Vital Signs - 8 hr 10/01/17 10/01/17 10/01/17 07:13 07:20 11:24 Temperature 97.8 F 98.0 F Pulse Rate 62 60 Respiratory 18 17 16 Rate Blood Pressure 141/65 133/59 (mmHg) O2 Sat by Pulse 97 97 Oximetry Intake and Output Last 24 Hours 09/29/17 09/30/17 10/01/17 10/02/17 06:59 06:59 06:59 06:59 Intake Total 1000 1342 0 Output Total 875 300 Balance 1000 467 -300 Weight 163 lb 163 lb Intake: IV Fluids 1000 1342 K+10meq 200 NS (0.9%) 137 zofran 5 Oral 0 0 Output: Urine 875 300 Other: Estimated Void Large # Bowel Movements 0 Gen: appears well; NAD Abd: +BS (hypoactive); nondistended; soft; no sig tenderness; incision sites ok A/P: doubt ileus or pSBO; seems to be improving; would allow at least clears, adv as marcela; will communicate w/ Dr. Rodriguez
[2017-10-01] MEDS: Ondansetron INJ* 2 MG/ML VIAL IV PRN (16:24)
[2017-10-01] MEDS: Montelukast Sodium TAB* 10 MG PO SCH (17:14)
[2017-10-01] MEDS: Atorvastatin* 20 MG TAB PO SCH (17:14)
[2017-10-01] MEDS: Aspirin EC Low Dose* 81 MG TAB.EC PO SCH (17:14)
[2017-10-01] MEDS ORDERED: PROCHLORPERAZINE INJ 5 MG/ML 2 ML VIAL IV PRN (19:49)
[2017-10-02] MEDS: NS 0.9% 1000 ML* 1,000 ML IV SCH ×2 (02:21→15:55)
[2017-10-02] MEDS: Heparin VIAL(*) 5000 UNITS/ML VIAL (FIVE THOUSAND) SUBCUT SCH ×3 (06:12→22:10)
[2017-10-02] MEDS: Levothyroxine TAB* 88 MCG TAB PO SCH (06:12)
[2017-10-02] MEDS ORDERED: Pantoprazole IV* 40 MG ONE (08:07)
[2017-10-02] MEDS ORDERED: Pantoprazole IV* 40 MG IV ONE (09:00)
[2017-10-02] MEDS ORDERED: Hydrocortisone SUPP* 25 MG SUPP (2.5%) PR PRN (09:13)
[2017-10-02] MEDS: Citalopram TAB* 20 MG PO SCH (09:55)
[2017-10-02] MEDS ORDERED: LORazepam TAB(*) 0.5 MG PO PRN (17:07)
[2017-10-02] MEDS: Montelukast Sodium TAB* 10 MG PO SCH (17:18)
[2017-10-02] MEDS: Atorvastatin* 20 MG TAB PO SCH (17:18)
[2017-10-02] MEDS: Aspirin EC Low Dose* 81 MG TAB.EC PO SCH (17:18)
--- NOTE | 2017-10-02 17:18 | PN ---
Subjective Date of Service: 10/02/17 Interval History: Nausea overnight resolved with walking Also episode of "GERD" symptoms but described more like "when I was vomiting" +flatus, no BMs Has not taken anything PO because she is afraid of vomiting Objective Active Medications: Acetaminophen (Tylenol Tab*) 650 mg PO Q4H PRN PRN Reason: mild pain Albuterol (Ventolin Hfa Inhaler*) 2 puff INH Q4H PRN PRN Reason: WHEEZING Aspirin (Aspirin Ec Low Dose*) 81 mg PO QPM [facility] Last Admin: 10/01/17 17:14 Dose: Not Given Atorvastatin Calcium (Lipitor*) 20 mg PO QPM [facility] Last Admin: 10/01/17 17:14 Dose: Not Given Citalopram Hydrobromide (Celexa Tab*) 20 mg PO QAM [facility] Last Admin: 10/02/17 09:55 Dose: Not Given Heparin Sodium (Porcine) (Heparin Vial(*)) 5,000 units SUBCUT Q8HR [facility] Last Admin: 10/02/17 15:55 Dose: 5,000 units Hydrocortisone (Anusol Hc Supp*) 25 mg RI DAILY PRN PRN Reason: PAIN/DISCOMFORT Sodium Chloride (Ns 0.9% 1000 Ml*) 1,000 mls @ 75 mls/hr IV PER RATE [facility] Last Admin: 10/02/17 15:55 Dose: 75 mls/hr Ketorolac Tromethamine (Toradol Inj*) 30 mg IV PUSH Q6H PRN PRN Reason: PAIN Last Admin: 10/01/17 07:54 Dose: 30 mg Levothyroxine Sodium (Synthroid Tab*) 88 mcg PO 0600 [facility] Last Admin: 10/02/17 06:12 Dose: Not Given Montelukast Sodium (Singulair Tab*) 10 mg PO QPM [facility] Last Admin: 10/01/17 17:14 Dose: Not Given Ondansetron HCl (Zofran Inj*) 4 mg IV Q4H PRN PRN Reason: NAUSEA/VOMITING Last Admin: 10/01/17 16:24 Dose: 4 mg Prochlorperazine Edisylate (Compazine Inj*) 5 mg IV Q6H PRN PRN Reason: NAUSEA/VOMITING Vital Signs - 8 hr 10/02/17 11:13 Temperature 98.0 F Pulse Rate 59 Respiratory 16 Rate Blood Pressure 154/58 (mmHg) O2 Sat by Pulse 97 Oximetry Oxygen Devices in Use Now: None Appearance: sitting in chair, NAD Eyes: No Scleral Icterus, PERRLA Ears/Nose/Mouth/Throat: Clear Oropharnyx, Mucous Membranes Moist Neck: NL Appearance and Movements; NL JVP, Trachea Midline Respiratory: Symmetrical Chest Expansion and Respiratory Effort, Clear to Auscultation Cardiovascular: RRR Abdominal: NL Sounds; No Tenderness; No Distention, No Hepatosplenomegaly, - - + bs in 4q Extremities: No Edema Neurological: Alert and Oriented x 3 Result Diagrams: 09/30/17 05:42 10/01/17 04:36 Assess/Plan/Problems-Billing Assessment: 72 yo F recent vag hysto c/b umbilical and lap port site hernias s/p repair with mesh repair now returning with N/V and e/o ileus vs pSBO - Patient Problems (1) Partial small bowel obstruction Comment: Increased flatus, no BM, emesis Advanced diet to clear liquids but has been hesitant to drink anything Continued encouragement to advance diet add ativan 0.5mg PRN for nausea appreciate surgical asisstance NS 75cc/hr (2) JESSICA (obstructive sleep apnea) Comment: CPAP (3) Hypothyroid Comment: synthroid (4) DVT prophylaxis Comment: HSQ
[2017-10-02] MEDS: Ketorolac INJ* 30 MG/ML 1 ML VIAL IV PUSH PRN (17:35)
--- NOTE | 2017-10-02 23:06 | PN ---
Progress Note - Progress Note Date of Service: 10/02/17 Note: Daughter is insistent that patient had labs drawn for her thyroid and potassium level checked this evening. patient alert and oriented with no complaints. WIll pass on for am team.
[2017-10-03] MEDS: Heparin VIAL(*) 5000 UNITS/ML VIAL (FIVE THOUSAND) SUBCUT SCH ×3 (05:41→21:33)
[2017-10-03] MEDS: Levothyroxine TAB* 88 MCG TAB PO SCH ×2 (05:43→09:52)
[2017-10-03] MEDS: NS 0.9% 1000 ML* 1,000 ML IV SCH (05:48)
--- NOTE | 2017-10-03 09:11 | PN ---
Subjective Date of Service: 10/03/17 Interval History: Patient seen and examined at beside. Daughter in room with patient. Ms. Howe reports persistent nausea but denies any vomiting. She has been reluctant to drink clear liquids but states she has taken some small sips. She reports yesterday she felt some "fluttering" in her chest but denies this currently. Denies CP, SOB, fever/chills, weakness. Patient has missed levothyroxine doses; discussed that she could try taking this one medication and adding on additional medications as she tolerates PO. She is hopeful to try more clear liquids today and advance her diet. Plan to start scopolomine patch to help provide better baseline nausea control. Patient in agreement to try this. Family History: Unchanged from Admission Social History: Unchanged from Admission Past Medical History: Unchanged from Admission Objective Active Medications: Acetaminophen (Tylenol Tab*) 650 mg PO Q4H PRN PRN Reason: mild pain Albuterol (Ventolin Hfa Inhaler*) 2 puff INH Q4H PRN PRN Reason: WHEEZING Aspirin (Aspirin Ec Low Dose*) 81 mg PO QPM [facility] Last Admin: 10/02/17 17:18 Dose: Not Given Atorvastatin Calcium (Lipitor*) 20 mg PO QPM [facility] Last Admin: 10/02/17 17:18 Dose: Not Given Citalopram Hydrobromide (Celexa Tab*) 20 mg PO QAM [facility] Last Admin: 10/02/17 09:55 Dose: Not Given Heparin Sodium (Porcine) (Heparin Vial(*)) 5,000 units SUBCUT Q8HR [facility] Last Admin: 10/03/17 05:41 Dose: 5,000 units Hydrocortisone (Anusol Hc Supp*) 25 mg NM DAILY PRN PRN Reason: PAIN/DISCOMFORT Sodium Chloride (Ns 0.9% 1000 Ml*) 1,000 mls @ 75 mls/hr IV PER RATE [facility] Last Admin: 10/03/17 05:48 Dose: 75 mls/hr Ketorolac Tromethamine (Toradol Inj*) 30 mg IV PUSH Q6H PRN PRN Reason: PAIN Last Admin: 10/02/17 17:35 Dose: 30 mg Levothyroxine Sodium (Synthroid Tab*) 88 mcg PO 0600 [facility] Last Admin: 10/03/17 05:43 Dose: Not Given Lorazepam (Ativan Tab(*)) 0.5 mg PO Q8H PRN PRN Reason: nausea Montelukast Sodium (Singulair Tab*) 10 mg PO QPM [facility] Last Admin: 10/02/17 17:18 Dose: Not Given Ondansetron HCl (Zofran Inj*) 4 mg IV Q4H PRN PRN Reason: NAUSEA/VOMITING Last Admin: 10/01/17 16:24 Dose: 4 mg Prochlorperazine Edisylate (Compazine Inj*) 5 mg IV Q6H PRN PRN Reason: NAUSEA/VOMITING Last Admin: 10/03/17 05:39 Dose: 5 mg Scopolamine (Transderm-Scop 1.5 Mg Patch*) 1 patch TRANSDERM Q72H [facility] Vital Signs - 8 hr 10/03/17 10/03/17 03:25 07:59 Temperature 98.0 F Pulse Rate 59 Respiratory 16 17 Rate Blood Pressure 143/63 (mmHg) O2 Sat by Pulse 97 Oximetry Oxygen Devices in Use Now: None Appearance: Older female, pleasant, lying in bed, NAD Eyes: No Scleral Icterus Ears/Nose/Mouth/Throat: Clear Oropharnyx, Mucous Membranes Moist Neck: NL Appearance and Movements; NL JVP Respiratory: Symmetrical Chest Expansion and Respiratory Effort, Clear to Auscultation Cardiovascular: NL Sounds; No Murmurs; No JVD, RRR Abdominal: - - lap sites well approximated, healing; BS x 4 quadrants Extremities: No Edema, No Clubbing, Cyanosis Neurological: Alert and Oriented x 3, NL Muscle Strength and Tone Lines/Tubes/Other Access: Clean, Dry and Intact Peripheral IV Nutrition: Taking PO's - clears Result Diagrams: 09/30/17 05:42 10/01/17 04:36 Assess/Plan/Problems-Billing Assessment: Ms. Howe is a 72 yo female who is s/p recent laparascopic hysterectomy c/b umbilical and lap port site hernias s/p repair with mesh repair at [facility] ; she presented on 09/30/17 with concern for N/V and e/o ileus vs partial SBO. - Patient Problems (1) Partial small bowel obstruction Code(s): K56.600 - PARTIAL INTESTINAL OBSTRUCTION, UNSPECIFIED TO CAUSE Comment: BS present, reports of increased flatus With persistent nausea, but no BM or emesis Continue clear liquids, patient remains hesitant to drink anything Continued encouragement to advance diet Continue prn ondansetron, compazine; lorazepam 0.5mg PRN for nausea Will add scop patch to try for better baseline nausea control Appreciate surgical assistance Continue IVF until able to take adequate PO (2) Hypothyroid Code(s): E03.9 - HYPOTHYROIDISM, UNSPECIFIED Comment: Continue levothyroxine Check TSH this AM (3) JESSICA (obstructive sleep apnea) Code(s): G47.33 - OBSTRUCTIVE SLEEP APNEA (ADULT) (PEDIATRIC) Comment: Continue CPAP (4) DVT prophylaxis Comment: SQ heparin and SCDs Status and Disposition: Inpatient admission. Plan for dispo to home, pending ability to tolerate diet.
[2017-10-03] MEDS ORDERED: Scopolamine 1.5 mg* PATCH TRANSDERM SCH (10:00)
[2017-10-03] MEDS: Citalopram TAB* 20 MG PO SCH (10:05)
[2017-10-03 10:14] LABS: EGFR Non-African American 127.5 (>60)
[2017-10-03] MEDS: NS 0.9% w/ 40 Meq KCL 1000 ML* 1,000 ML IV SCH ×2 (12:11→21:55)
[2017-10-03] MEDS: Potassium Chloride LIQUID* 20 MEQ PACKET PO SCH (12:11)
[2017-10-03] MEDS: Aspirin EC Low Dose* 81 MG TAB.EC PO SCH (17:30)
[2017-10-03] MEDS: Montelukast Sodium TAB* 10 MG PO SCH (17:30)
[2017-10-03] MEDS: Atorvastatin* 20 MG TAB PO SCH (17:30)
[2017-10-03] MEDS ORDERED: diPHENhydraMINE PO* 25 MG PO PRN (23:20)
[2017-10-04] MEDS: Levothyroxine TAB* 88 MCG TAB PO SCH (05:26)
[2017-10-04] MEDS: Heparin VIAL(*) 5000 UNITS/ML VIAL (FIVE THOUSAND) SUBCUT SCH ×2 (05:27→14:31)
[2017-10-04 06:34] LABS: EGFR Non-African American 104.6 (>60)
[2017-10-04] MEDS: Potassium Chloride LIQUID* 20 MEQ PACKET PO SCH (08:19)
[2017-10-04] MEDS: Citalopram TAB* 20 MG PO SCH (08:19)
[2017-10-04 11:45] VITALS: BP 142/60
--- NOTE | 2017-10-06 11:05 | DS ---
CC: Dr. Scott * DISCHARGE SUMMARY: DATE OF ADMISSION: 10/01/17 DATE OF DISCHARGE: 10/04/17 PRIMARY CARE PROVIDER: Dr. Scott. MY ATTENDING WHILE IN THE HOSPITAL: Titi Tim MD * (DICTATED BY MARY PURVIS) CONSULTING PROVIDERS: MARY Penn, Surgery. PRIMARY DISCHARGE DIAGNOSIS: Partial small bowel obstruction. SECONDARY DISCHARGE DIAGNOSES: 1. Hypothyroidism. 2. Obstructive sleep apnea. 3. Migraines. 4. Laparoscopic hysterectomy. 5. Left breast biopsy. 6. Asthma. 7. Transient ischemic attack x2. 8. Conservative treatment for diverticulitis. STUDIES DONE WHILE IN THE HOSPITAL: Abdomen and pelvis CT from 09/30/17 read as distention without dilatation of small bowel loops in the upper abdomen without transition point. This is nonspecific. Differential includes ileus versus early partial obstruction. Recommended attention on follow up imaging, diverticulosis, atherosclerosis, small amount of free fluid in the pelvis. Brain CT from 09/30/17 read as no acute intracranial pathology. Electrocardiogram from 10/02/17 shows normal sinus rhythm, prolonged CO interval , no ST segment changes, normal axis, no other abnormalities or blocks. MEDICATIONS AT DISCHARGE: 1. Singulair 10 mg p.o. q. p.m. 2. Albuterol 2 puffs inhalation q.4 hours if needed. 3. Ferrous gluconate 325 mg p.o. b.i.d. 4. Lexapro 10 mg p.o. q. a.m. 5. Lipitor 20 mg p.o. q. p.m. 6. Aspirin 81 mg p.o. q. p.m. 7. Levothyroxine 88 mcg p.o. q. a.m. 8. Tylenol 650 mg p.o. q.4 hours as needed. 9. Zofran ODT 4 mg p.o. q.6 hours as needed. 10. Scopolamine 1.5 mg patch, 1 patch transdermal q.72 hours as needed. New medications on discharge: 1. Tylenol. 2. Zofran. 3. Scopolamine. Medications discontinued on discharge: None. HOSPITAL COURSE: This is a brief summary of the patient's presentation. For more details, please see the history and physical from Dr. Clayton Rodriguez on . In brief, the patient is a 72-year-old female with past medical history significant for the above, who had a recent laparoscopic hysterectomy at [facility] who was discharged, found to have umbilical hernia and which required repair and mesh, she was hospitalized in [facility] for this, treated with NG tube and was feeling well for 4 days, however, the patient then ate [place] food and developed possible gastroenteritis with vomiting, which increased and became bilious. The patient denied abdominal pain. The patient had diarrhea, flatus, no blood in her stool. The patient also had one episode of vertigo. The patient was admitted to the hospital for possible partial small bowel obstruction or gastroenteritis for supportive care. The patient was made n.p.o. and had good resolution of nausea with Zofran. The patient was seen in consultation by Kyle Dubon of Surgery. The patient had flatus since admission. The patient was seen by Kyle Dubon of Surgery and no surgical problems were identified. It is believed that this was related to vertigo or gastroenteritis. She has had intermittent vertigo. The patient was continued on a clear liquid diet. The patient had pain in her surgical incision, but no other complaints. The patient had no bowel movements. The patient was unable to take two doses of her Synthroid and a repeat TSH was within normal limits. The patient still had no bowel movements on 10/02/17. The patient voluntarily had taken nothing by mouth due to concern for vomiting. The patient had Ativan added on for nausea as well. The patient had been on scopolamine patch added on for nausea on 10/03/17. The patient had increased flatus, persistent nausea. The patient tolerated clear diet without vomiting after the scopolamine patch. The patient improved greatly from 10/03/17 to 10/04/17. The patient had lactic acidosis on admission, which was not repeated. The patient had elevated ALT, alkaline phosphatase and CRP as well. Her hypokalemia resolved with repletion. The patient had no other significant abnormalities on lab work. The patient was able to tolerate clear liquids, then full liquids, and then soft diet without nausea on 10/04/17. The patient had a formed bowel movement on the morning of 10/04/17 and was amenable to discharge home. PHYSICAL EXAM ON THE DAY OF DISCHARGE: General: The patient is a 72-year-old female who appears stated age and sitting comfortably in bed, in no acute distress. Vital signs at the time of discharge, temperature 98.6, pulse rate 58, respiratory rate 16, oxygenation saturation 98% on room air, blood pressure 142/60. HEENT: Head: Normocephalic, atraumatic. Sclerae anicteric. No conjunctival injection. Nasal mucosa moist. Oral mucosa moist. No pharyngeal erythema, discharge or exudates. Neck: Supple, nontender. No lymphadenopathy. No carotid bruit auscultated. Cardiac: Regular rate and rhythm. No clicks, murmurs, gallops, or rubs. Pulses 2+ in bilateral dorsalis pedis, posterior tibialis, and radial areas. Respiratory: Clear to auscultation bilaterally. No wheezes, rales or rhonchi. Good air exchange bilaterally. Abdomen: Soft, nontender, nondistended. Laparoscopic surgical incisions covered with surgical adhesive noted without signs of erythema or discharge. Bowel sounds present. Normoactive in all 4 quadrants. No hepatosplenomegaly. No abdominal bruits auscultated. Skin: Clean, dry, and intact. No rash as stated above. Genitourinary: No suprapubic tenderness, no CVA tenderness. Neuro: Cranial nerves II through XII intact and no focal deficits. Normal gait. Psychiatric: Pleasant and cooperative. DISCHARGE PLAN: The patient will be discharged to home with a noted diagnosis of partial small bowel obstruction, which resolved with bowel rest. The patient was able to tolerate p.o. intake without nausea. At the time of discharge, the patient was recommended to have a soft diet for 2 more days after she is discharged from the hospital and then to advance to regular unrestricted diet as tolerated. The patient had no other changes to her medications. She will follow up with her surgeons for post surgical care and obey any activity limitations that are recommended. The patient should return to the hospital for inability to take p.o. intake, chest pain, shortness of breath or other alarming symptoms. The patient should use scopolamine patch initially when she leaves the hospital and then as needed for vertigo and associated nausea. The patient should also use Zofran oral dissolving tablet as needed for nausea. The patient should monitor her bowel movements for blood or persisting constipation with associated abdominal pain. TIME SPENT: Approximately 60 minutes was spent on this discharge, 30 of which was spent face -to-face with the patient, obtaining history and physical, and discussing treatment plan. MARY PURVIS [id number]/[facility] #: [id number] [facility] HOSPITALShravan
== END 2017-10-04 15:02 | disposition home or self-care (01) | DRG 247 ==
LOC: ED 05:25 → SSU 10:33 → OBSVTOIN 10-01 10:00
PROVIDERS: ADMIT Internal Medicine; ATTEND Hospitalist
DX: K56.600 Partial intestinal obstruction, unspecified as to cause (principal); E03.9 Hypothyroidism, unspecified; G47.33 Obstructive sleep apnea (adult) (pediatric); R51 Headache; J45.909 Unspecified asthma, uncomplicated; G43.909 Migraine, unspecified, not intractable, without status migrainosus; Z86.73 Personal history of transient ischemic attack (TIA), and cerebral infarction without residual deficits; Z88.0 Allergy status to penicillin; Z91.048 Other nonmedicinal substance allergy status; Z83.3 Family history of diabetes mellitus; Z90.710 Acquired absence of both cervix and uterus
CPT/HCPCS: 36415; 70450; 74176; 80048; 80053; 81003; 81015; 82150; 83605; 83690; 83735; 84443; 85025; 85610; 85730; 86140; 93005; 99284; A9270-GY; G0378; J0780; J1644; J1885; J2060; J2405; J2550; J2765; J3480

== ENCOUNTER 2019-09-12 20:08 | Emergency (ER) | payer BC, MEDICARE ==
--- OUTSIDE RECORDS SUMMARY | 2019-09-12 20:28 | XMS REPORT | Continuity of Care Document ---
:1945 External Reference #:[id number] Author Name Willem Jonas N.P. (transmitted by agent of provider Aisha House) Address [address], [place] [address] Care Team Providers Name Role Phone Kam Denise MD - Internal Care Team Information [employer] [phone] Medicine Claudia Scott MD - Care Team Information [facility] [employer] Family Medicine Problems Active Problems Provider Date Transient global amnesia Mayte Bill M.D. Onset: 12/22/2014 Disturbance in sleep behavior Karuna Linda MD Onset: 05/07/2016 Restless legs Karuna Linda MD Onset: 05/07/2016 Anemia Karuna Linda MD Onset: 05/07/2016 Obstructive sleep apnea syndrome Karuna Linda MD Onset: 05/30/2016 Seizure Carmelo Erickson M.D. Onset: 06/14/2019 Amnesia Carmelo Erickson M.D. Onset: 06/14/2019 Social History Type Date Description Comments Sex Unknown Tobacco Use Start: Unknown Never Smoked Cigarettes Smoking Status Reviewed: 08/05/19 Never Smoked Cigarettes ETOH Use Rarely consumes alcohol Tobacco Use Start: Unknown Patient has never smoked Recreational Drug Use Denies Drug Use Exercise Type/Frequency Exercises regularly Allergies, Adverse Reactions, Alerts Active Allergies Reaction Severity Comments Date Iodine 10/30/2014 Inactive Allergies Penicillin 10/30/2014 Medications Active Medications SIG Qnty Indications Ordering Date Provider Anikte Martin Please provide G47.33 Karuna Linda, 03/24/2018 Pillow with positional pillow for management of positional sleep apnea. Mandibular dear , please G47.33 Karuna Linda, 09/05/2016 Advancement Device evaluate and MD fabricate oral Device appliance for mild sleep apnea Ferrous Sulfate Take 2 Tablets By 180tabs Karuna Linda, 08/19/2016 Mouth Every Day 325(65Fe) mg Tablets Ventolin HFA 2 puffs by mouth Unknown 05/06/2016 four times a day 108(90Base) mcg/Act as needed Aerosol Synthroid 1 by mouth every Unknown 88mcg Tablets day Lipitor 1 by mouth every Unknown 40mg Tablets night at bedtime Aspirin Low Dose 1 by mouth every Unknown 81mg day Tablets Lexapro 1 by mouth every Unknown 10mg Tablets day Acetaminophen 1 by mouth twice a Unknown 500mg day as needed Capsules Benadryl Allergy 1 tab po prn Unknown 25mg sleep. Tablets Aleve Unknown 220mg Tablets Singulair 1 by mouth every Unknown 10mg Tablets day Immunizations CPT Code Status Date Vaccine Lot # [id number] Given 04/22/2016 Influenza Virus Vaccine, Quadrivalent, Split, Preservative Free Vital Signs Date Vital Result Comment 08/05/2019 7:58am Height 62 inches 5'2" Weight 170.00 lb Heart Rate 74 /min BP Systolic Sitting 112 mmHg BP Diastolic Sitting 70 mmHg Respiratory Rate 18 /min BMI (Body Mass Index) 31.1 kg/m2 06/14/2019 11:06am Height 62 inches 5'2" Weight 166.00 lb Heart Rate 72 /min BP Systolic 110 mmHg BP Diastolic 72 mmHg BMI (Body Mass Index) 30.4 kg/m2 Results Description No Information Available Procedures Date Code Description Status 04/28/2019 29475 Destruction Of Benign Lesions Any Method 1-14 lesions Completed Medical Devices Description No Information Available Encounters Type Date Location Provider Dx Diagnosis Office Visit 06/14/2019 [facility] Carmelo Erickson, R41.3 Other amnesia 11:15a [facility] R41.0 Disorientation, unspecified Office Visit 05/19/2019 9:00a [facility] Karuna G47.33 Obstructive sleep [facility] Maddi apnea (adult) Rick (pediatric) G25.81 Restless legs syndrome Office Visit 04/28/2019 7:50a [facility] Jose Alberto Fink, L82.1 Other seborrheic MD keratosis D18.01 Hemangioma of skin and subcutaneous tissue L82.0 Inflamed seborrheic keratosis L53.8 Other specified erythematous conditions R20.8 Other disturbances of skin sensation Z78.9 Other specified health status L29.8 Other pruritus Assessments Date Code Description Provider 08/05/2019 R41.3 Other amnesia Willem Jonas, N.P. 08/05/2019 R00.2 Palpitations Willem Jonas N.P. 08/05/2019 R56.9 Unspecified convulsions Willem Jonas N.P. 08/05/2019 R55 Syncope and collapse Willem Jonas, N.P. 06/14/2019 R41.3 Other amnesia Carmelo Erickson M.D. 06/14/2019 R41.0 Disorientation, unspecified Carmelo Erickson M.D. 05/19/2019 G47.33 Obstructive sleep apnea (adult) (pediatric) Karuna Linda MD 05/19/2019 G25.81 Restless legs syndrome Karuna Linda MD 04/28/2019 L82.1 Other seborrheic keratosis Jose Alberto Fink MD 04/28/2019 D18.01 Hemangioma of skin and subcutaneous tissue Jose Alberto Fink MD 04/28/2019 L82.0 Inflamed seborrheic keratosis Jose Alberto Fink MD 04/28/2019 L53.8 Other specified erythematous conditions Jose Alberto Fink MD 04/28/2019 R20.8 Other disturbances of skin sensation Jose Alberto Fink MD 04/28/2019 Z78.9 Other specified health status Jose Alberto Fink MD 04/28/2019 L29.8 Other pruritus Jose Alberto Fink MD Plan of Treatment Future Appointment(s):10/11/2019 12:00 pm - Carmelo Erickson M.D. at [facility]11/21/2019 9:15 am - Karuna Linda MD at [facility]08/05/2019 - Willem Jonas, N.P.R41.3 Other wzaammbR51.2 NalmtfjknodiY66.9 Unspecified convulsionsFollow up:Follow in the last 2 week in September Please send me a copy of your Carotid Ultrasound reports from your [facility] Syncope and collapseNew Orders:Echocardiogram, Ordered: 08/05/19Event Monitor, Ordered: 08/05/19 Functional Status Description No Information Available Mental Status Description No Information Available Referrals Description No Information Available
[2019-09-12] MEDS ORDERED: NS 0.9% 1000 ML** 1,000 ML IV ONE (23:33)
[2019-09-12] MEDS ORDERED: Ondansetron INJ* 2 MG/ML VIAL IV ONE (23:33)
[2019-09-12 23:49] LABS: ABS Lymphocytes 1.9 10^3/ul (1.0-4.8); ABS Monocytes 0.4 10^3/ul (0-0.8); ABS Neutrophils 8.3 10^3/ul (1.5-7.7); Hematocrit 44 % (35-47); Hemoglobin 14.7 g/dL (12.0-16.0); Lymphocyte % 17.5 %; Mean Corpuscular HGB Conc 34 g/dL (31-36); Mean Corpuscular Hemoglobin 29 pg (27-31); Mean Corpuscular Volume 87 fL (80-97); Mean Platelet Volume 7.5 fL (7.4-10.4); Nucleated Red Blood Cells % 0.1; Platelet Count 316 10^3/uL (150-450); Red Blood Count 5.04 10^6 /uL (3.70-4.87); Red Cell Distribution Width 13 % (10-15); White Blood Count 10.6 10^3/uL (3.5-10.8)
[2019-09-13 00:06] LABS: Albumin 4.2 g/dL (3.2-5.2); Albumin/Globulin Ratio 1.3 (1-3); C Reactive Protein 1.99 mg/L (<8.01); Calcium 9.2 mg/dL (8.6-10.3); EGFR African American 108.1 (>60); EGFR Non-African American 89.3 (>60); Globulin 3.3 g/dL (2-4); Magnesium 2.1 mg/dL (1.9-2.7); Potassium 3.6 mmol/L (3.5-5.0); Total Bilirubin 0.7 mg/dL (0.2-1.0); Total Protein 7.5 g/dL (6.4-8.9)
--- NOTE | 2019-09-13 00:12 | ED ---
Nausea/Vomiting/Diarrhea HPI - HPI Summary HPI Summary: Patient complains of lightheadedness, nausea and vomiting with occasional episodes of imbalance 3 days. Unable to tolerate by mouth intake. Denies room spinning, vision change, unilateral deficit, facial droop, speech deficits , trauma, fever, cough, sore throat, CP, SOB, abdominal pain, change in urine, change in BM. Medical history is hypothyroid, TIA, diverticulosis. Patient being followed by neurologist Dr. Erickson for TIAs. Patient states extensive imaging including MRIs 2 months ago. - History of Current Complaint Chief Complaint: EDNauseaVomitDiarrh Stated Complaint: NAUSEA/HEADACHE/DIZZINESS PER DAUGHTER Time Seen by Provider: 09/12/19 23:06 Hx Obtained From: Patient, Family/News Internship Onset/Duration: Gradual Onset, Lasting Days Timing: Intermittent Episodes Lasting: Severity Initially: Severe Severity Currently: Severe Pain Intensity: 8 Pain Scale Used: 0-10 Numeric Aggravating Factor(s): Food Alleviating Factor(s): Spontaneous Resolution Nausea/Vomiting Presence: Nauseated, Vomiting Vomiting Characteristics: Nonbilious Diarrhea Presence: No - Allergies/Home Medications Allergies/Adverse Reactions: Allergies Allergy/AdvReac Type Severity Reaction Status Date / Time iodine Allergy Hives Verified 09/12/19 20:16 Penicillins Allergy Dizziness Verified 09/12/19 20:16 PMH/Surg Hx/FS Hx/Imm Hx Endocrine/Hematology History: Reports: Hx Thyroid Disease Denies: Hx Anticoagulant Therapy, Hx Diabetes Cardiovascular History: Reports: Hx Hypercholesterolemia Denies: Hx Hypertension, Hx Pacemaker/ICD Respiratory History: Reports: Hx Asthma, Hx Sleep Apnea Denies: Hx Chronic Obstructive Pulmonary Disease (COPD) GI History: Reports: Hx Gastroesophageal Reflux Disease History: Denies: Hx Renal Disease Sensory History: Denies: Hx Contacts or Glasses, Hx Hearing Aid Opthamlomology History: Denies: Hx Contacts or Glasses EENT History: Denies: Hx Deafness Neurological History: Reports: Hx Migraine Denies: Hx Dementia, Hx Seizures Psychiatric History: Denies: Hx Panic Disorder, Hx Substance Abuse - Surgical History Surgery Procedure, Year, and Place: D&CLeft Breast Biopsy, HYSTERECTOMY, herniated bowel repair - Immunization History Date of Tetanus Vaccine: ukn Infectious Disease History: No Infectious Disease History: Reports: Hx Shingles Denies: Hx Clostridium Difficile, Hx Hepatitis, Hx Human Immunodeficiency Virus (HIV), Hx of Known/Suspected MRSA, Hx Tuberculosis, Hx Known/Suspected VRSA, History Other Infectious Disease, Traveled Outside the [place] in Last 30 Days - Family History Known Family History: Positive: Diabetes - Social History Alcohol Use: None Substance Use Type: Reports: None Smoking Status (MU): Never Smoked Tobacco Review of Systems Constitutional: Negative Eyes: Negative ENT: Negative Cardiovascular: Negative Respiratory: Negative Positive: Vomiting, Nausea Genitourinary: Negative Musculoskeletal: Negative Skin: Negative Neurological: Negative Psychological: Normal All Other Systems Reviewed And Are Negative: Yes Physical Exam - Summary Physical Exam Summary: Neuro exam normal. Ambulates normally. Abdomen soft nontender. No room spinning with change in head position. No nystagmus noted. Patient appears dry. Triage Information Reviewed: Yes Vital Signs On Initial Exam: Initial Vitals Temp Pulse Resp BP Pulse Ox 98.6 F 80 22 165/82 97 09/12/19 20:13 09/12/19 20:13 09/12/19 20:13 09/12/19 20:13 09/12/19 20:13 Vital Signs Reviewed: Yes Appearance: Positive: Well-Appearing Skin: Positive: Warm Head/Face: Positive: Normal Head/Face Inspection Eyes: Positive: Normal ENT: Positive: Normal ENT inspection Neck: Positive: Supple Respiratory/Lung Sounds: Positive: Clear to Auscultation Cardiovascular: Positive: Normal Abdomen Description: Positive: Nontender Musculoskeletal: Positive: Normal Neurological: Positive: Normal Psychiatric: Positive: Normal AVPU Assessment: Alert - [place] Coma Scale Best Eye Response: 4 - Spontaneous Best Motor Response: 6 - Obeys Commands Best Verbal Response: 5 - Oriented Coma Scale Total: 15 Procedures - Sedation Patient Received Moderate/Deep Sedation with Procedure: No Diagnostics - Vital Signs Vital Signs Temp Pulse Resp BP Pulse Ox 09/12/19 20:13 98.6 F 80 22 165/82 97 - Laboratory Lab Results: Lab Results 09/12/19 09/12/19 09/12/19 Range/Units 23:41 23:41 23:41 WBC 10.6 (3.5-10.8) 10^3/uL RBC 5.04 H (3.70-4.87) 10^6 /uL Hgb 14.7 (12.0-16.0) g/dL Hct 44 (35-47) % MCV 87 (80-97) fL MCH 29 (27-31) pg MCHC 34 (31-36) g/dL RDW 13 (10-15) % Plt Count 316 (150-450) 10^3/uL MPV 7.5 (7.4-10.4) fL Neut % (Auto) 78.0 % Lymph % (Auto) 17.5 % [place] % (Auto) 4.1 % Eos % (Auto) 0.0 % Baso % (Auto) 0.4 % Absolute Neuts (auto) 8.3 H (1.5-7.7) 10^3/ul Absolute Lymphs (auto) 1.9 (1.0-4.8) 10^3/ul Absolute Monos (auto) 0.4 (0-0.8) 10^3/ul Absolute Eos (auto) 0.0 (0-0.6) 10^3/ul Absolute Basos (auto) 0.0 (0-0.2) 10^3/ul Absolute Nucleated RBC 0.0 10^3/ul Nucleated RBC % 0.1 Sodium 138 (135-145) mmol/L Potassium 3.6 (3.5-5.0) mmol/L Chloride 104 (101-111) mmol/L Carbon Dioxide 22 (22-32) mmol/L Anion Gap 12 H (2-11) mmol/L BUN 13 (6-24) mg/dL Creatinine 0.65 (0.51-0.95) mg/dL Est GFR ( Amer) 108.1 (>60) Est GFR (Non-Af Amer) 89.3 (>60) BUN/Creatinine Ratio 20.0 (8-20) Glucose 104 H (70-100) mg/dL Lactic Acid 0.9 (0.5-2.0) mmol/L Calcium 9.2 (8.6-10.3) mg/dL Magnesium 2.1 (1.9-2.7) mg/dL Total Bilirubin 0.70 (0.2-1.0) mg/dL AST 19 (13-39) U/L ALT 18 (7-52) U/L Alkaline Phosphatase 98 (34-104) U/L Troponin I 0.00 (<0.03) ng/mL C-Reactive Protein 1.99 (<8.01) mg/L Total Protein 7.5 (6.4-8.9) g/dL Albumin 4.2 (3.2-5.2) g/dL Globulin 3.3 (2-4) g/dL Albumin/Globulin Ratio 1.3 (1-3) TSH Pending Result Diagrams: 09/12/19 23:41 09/12/19 23:41 Lab Statement: Any lab studies that have been ordered have been reviewed, and results considered in the medical decision making process. Naus/Vom/Diarrhea Course/Dx - Course Course Of Treatment: Patient complains of lightheadedness, nausea and vomiting with occasional episodes of imbalance 3 days. Unable to tolerate by mouth intake. Denies room spinning, vision change, unilateral deficit, facial droop, speech deficits, trauma, fever, cough, sore throat, CP, SOB, abdominal pain, change in urine, change in BM. Medical history is hypothyroid, TIA, diverticulosis. Patient being followed by neurologist Dr. Erickson for TIAs. Patient states extensive imaging including MRIs 2 months ago. Vital signs within normal limits. Anion gap 12. Labs otherwise unremarkable. EKG sinus rhythm, rate of 74, normal axis. Patient states she has had vertigo symptoms for, this does not feel like vertigo. Also does not feel like TIA. Patient tolerating by mouth intake after Zofran and Reglan IV. States she feels better. Ambulated to the bathroom without imbalance or instability. Patient refused CT brain due to recent head imaging. - Differential Dx/Diagnosis Provider Diagnosis: Nausea & vomiting, Lightheadedness Condition At Discharge: Stable Discharge ED - Sign-Out/Discharge Documenting (check all that apply): Patient Departure - Discharge Plan Condition: Stable Disposition: HOME Prescriptions: Ondansetron ODT TAB* [Zofran 4 MG Odt TAB*] 4 mg PO Q8H PRN 4 Days #21 tab.odt PRN Reason: Nausea Patient Education Materials: Acute Nausea and Vomiting (ED), Lightheadedness ( ED) Referrals: Claudia Scott MD [Primary Care Provider] - Additional Instructions: Take Zofran under the tongue as directed if needed for nausea. Drink plenty of fluids to maintain hydration. Gentle diet, including soups and bland foods like rice or toast. Follow-up with primary care. Return to the ED for any new or worsening symptoms. - Billing Disposition and Condition Condition: STABLE Disposition: Home
[2019-09-13 00:42] LABS: TSH (Thyroid Stimulating Horm) 0.53 mcIU/mL (0.34-5.60)
[2019-09-13 00:43] LABS: Influenza A Molecular NEGATIVE (Negative); Influenza B Molecular NEGATIVE (Negative)
[2019-09-13] MEDS ORDERED: Metoclopramide IV* 5 MG/ML 2 ML VIAL IV ONE (01:05)
[2019-09-13 01:08] LABS: Urine Appearance Cloudy; Urine Bilirubin Negative (Negative); Urine Blood Negative (Negative); Urine Color Yellow; Urine Glucose Negative (Negative); Urine Ketones 2+ (Negative); Urine Nitrite Negative (Negative); Urine Protein 1+(30 mg/dL) (Negative); Urine Specific Gravity 1.023 (1.010-1.030); Urine Urobilinogen Negative (Negative)
[2019-09-13 01:16] LABS: Urine Bacteria Absent (Absent); Urine Red Blood Cell Trace(0-2/hpf) (Absent); Urine Squamous Epithelial Cell Present (Absent); Urine White Blood Cell Trace(0-5/hpf) (Absent)
[2019-09-13] MEDS ORDERED: Meclizine TAB* 12.5 MG PO ONE (02:03)
[2019-09-13] MEDS ORDERED: O ndansetron ODT 4MG 5TAB PRPK 4 MG PAK PO ONE (02:44)
[2019-09-13 03:58] VITALS: BP 143/62
== END 2019-09-13 04:20 | disposition home or self-care (01) ==
LOC: ED 20:08
DX: R42 Dizziness and giddiness (principal); R11.2 Nausea with vomiting, unspecified; E07.9 Disorder of thyroid, unspecified; E78.00 Pure hypercholesterolemia, unspecified; J45.909 Unspecified asthma, uncomplicated; K21.9 Gastro-esophageal reflux disease without esophagitis; Z90.710 Acquired absence of both cervix and uterus; Z88.0 Allergy status to penicillin; Z91.041 Radiographic dye allergy status
CPT/HCPCS: 36415; 80053; 81003; 81015; 83605; 83735; 84443; 84484; 85025; 86140; 87086; 93005; 96361; 96374; 96375; 99283; A9270-GY; J2405; J2765